=== PATIENT | female | born 1945 | race Caucasian/White ===

== ENCOUNTER 2020-06-07 19:03 | Emergency (ER) | payer MEDICARE ==
[2020-06-07] MEDS ORDERED: Nitroglycerin 0.4 MG TAB 1 EACH ONE (19:11)
[2020-06-07] MEDS ORDERED: Aspirin Chewable 81 MG TAB ONE (19:11)
== END 2020-06-07 19:20 | disposition left against medical advice (07) ==
LOC: BURERS 19:03
DX: R07.2 Precordial pain (principal); Z79.899 Other long term (current) drug therapy; Z79.82 Long term (current) use of aspirin; I25.2 Old myocardial infarction
CPT/HCPCS: 93005; 94760